=== PATIENT | female | born 1960 ===

== ENCOUNTER 2017-12-07 06:29 | Emergency (ER) ==
[2017-12-07] MEDS ORDERED: Triple Antibiotic Oint 1 GM Packet ONE (06:43)
--- NOTE | 2017-12-07 08:08 | CT ---
PRELIMINARY REPORT/[facility]/EMERGENCY AFTER HOURS PROCEDURE: EXAM: CT Cervical Spine Without Intravenous Contrast CLINICAL HISTORY: 57 years old, female; Injury or trauma; Fall; Initial encounter; Abrasion; Injury date: 12/07/2017; I njury details: residential patient; Fell earlier this morning; Patient HX: Fall earlier this morning TECHNIQUE: Axial computed tomography images of the cervical spine without intravenous contrast. All CT scans at this facility use one or more dose reduction techniques, viz.: automated exposure control; ma/kV adjustment per patient size (including targeted exams where dose is matched to indication; i.e. head) ; or iterative reconstruction technique. Coronal reformatted images were created and reviewed. COMPARISON: No relevant prior studies available. FINDINGS: Vertebrae: Loss of vertebral body height, presumed degenerative No acute fracture. Discs/spinal canal/neural foramina: No acute findings. No significant spinal canal stenosis. Foraminal stenosis at C5-C6 noted Soft tissues: Unremarkable. Lung apices: Unremarkable as visualized. Air fluid level in the left sphenoid sinus with subtotal opacification. Mild mucosal thickening in th e right maxillary sinus and posterior left ethmoid air cells IMPRESSION: No definite acute cervical fracture Left sphenoid sinusitis suspected Thank you for allowing us to participate in the care of your patient. Dictated and Authenticated by: Rich Shaikh MD 12/07/2017 7:17 AM Central Time ([place] & [place]) FINAL REPORT CT CERVICAL SPINE WITHOUT CONTRAST: HISTORY: residential patient. Fall. Posttraumatic pain. COMPARISON: None. TECHNIQUE: CT cervical spine is performed without contrast. Reformatted images are submitted for interpretation . FINDINGS: This report is in agreement with the preliminary report by [facility]. No cervical spine fracture. There i s left sphenoid sinus disease. POS: OFF
== END 2017-12-07 08:45 ==
LOC: MADERS 06:29
DX: S00.03XA Contusion of scalp, initial encounter (principal); B20 Human immunodeficiency virus [HIV] disease; W06.XXXA Fall from bed, initial encounter
CPT/HCPCS: 72125